=== PATIENT | female | born 1995 | race Caucasian/White ===

== ENCOUNTER 2022-03-12 13:21 | Emergency (ER) | payer SELFPAY ==
[2022-03-12 13:57] VITALS: BP 140/70; BP 144/71; PULSE 78; PULSE 80; RESP 19; TEMP 36.6; O2SAT 98; BMI 29.2
--- NOTE | 2022-03-12 15:07 | ED.PSYCH ---
HPI - Psych General Chief Complaint: Psychiatric Symptoms Stated Complaint: CRISIS Time Seen by Provider: 03/12/22 13:59 Source: patient and EMS Mode of arrival: EMS History of Present Illness HPI Narrative: 26-year-old female with no significant past medical history presenting to the ED via EMS found by PD disheveled, crying, altered/under the influence. Patient states she was at [employer] and started crying, reports increasing depression due to the loss of her mother 1 year ago. Admits to injecting Fentanyl, denies other illicit drugs or EtOH. Denies falls/trauma, abdominal pain, nausea/vomiting, SI/HI MD complaint: feels depressed Onset (ago): day(s) Related Data Allergies Allergy/AdvReac Type Severity Reaction Status Date / Time Unable to Assess Allergy Unverified 03/12/22 14:40 Review of Systems Review of Systems: Constitutional: No Fever, No Chills, No Fatigue, No Malaise ENT/Mouth: No Ear Pain, No Nasal Congestion, No sore throat, No Swallowing Difficulty Eyes: No Eye Pain, No Swelling, No Vision Changes Cardiovascular: No Chest Pain, No SOB, No Edema, No Palpitations Respiratory: No Cough, No Dyspnea Gastrointestinal: No Nausea, No Vomiting, No Diarrhea, No Constipation, No Abdominal pain Genitourinary: No Dysuria, No Urinary Frequency, No Hematuria, No Urinary Flow Changes Musculoskeletal: No joint pain, No Myalgias, No Joint Swelling Skin: No Skin Lesions, No rash Neuro: No Loss of Consciousness, No Dizziness, No Headache Psych: + Anxiety/Panic, + Depression, No SI/HI/AH/VH, No Social Issues Yes all other systems are reviewed and are negative Constitutional: Constitutional: Reports as per HPI [facility] Past Medical History Attestation statement: The following information was validated with the patient. Social History Social History Advance Directives: No Advance Directives Information Provided: No Physical Exam Vital Signs: Vital Signs: Last Vital Signs Temp 98 F 03/12/22 13:57 Pulse 78 03/12/22 13:57 Resp 19 03/12/22 13:57 BP 144/71 H 03/12/22 13:57 Pulse Ox 98 03/12/22 13:57 O2 Del Method 10/17/22 13:57 BMI result Body Mass Index 29.2 Const: Other: Disheveled, appears under the influence, ambulating around POD irratically General: no acute distress and anxious Orientation/consciousness: patient oriented x3 Limitations: no limitations HEENT: Head: Yes normal to inspection and Yes atraumatic Ears: hearing grossly normal bilaterally General nose exam: Normal external nose present Face and sinus: Yes normal facial exam Eyes: General: appearance normal, both eyes and all related structures EOM: EOMs intact bilaterally Neck: Neck: Yes normal visual inspection and Yes no meningeal signs Resp: Effort & Inspection: normal respiratory effort and no respiratory distress Auscultation: clear to auscultation bilaterally Cardio: Rate: regular rate Heart sounds: S1 normal heart sound present and S2 normal heart sound present Skin: Rashes: no rashes Wounds: no wounds Neuro: General: patient oriented x3, tone normal, moves all extremities and no meningeal signs Cranial nerves: Yes CN's II-XII intact bilaterally Gait exam (Neuro): Normal gait present Extrem: General: Yes normal to inspection Psych: Appearance: disheveled Affect: Sad affect present, Hostile affect present and Irritable affect present Attitude: Guarded attititude/behavior present Thought content: suicidality, no homicidality and Depressive thoughts present Course Course Course Narrative: -UA contaminated. Tox screen positive for opiates, fentanyl, cocaine -[id number]--patient requesting to be discharged, continues to deny SI/HI, just feels depressed. Is more at baseline, ambulating with steady gait, alert, offered resources however patient refused MDM - Psych MDM Narrative Medical decision making narrative: 26-year-old female with no significant past medical history presenting to the ED via EMS found by PD disheveled, crying, altered/under the influence. On exam vital signs stable, nontoxic appearing, under the influence, ambulating irratically, no evidence of trauma. Concern for PCP use vs other illicit substances and depression. Patient denies SI/HI. Plan: Tox screen, CARE team consult Differential Diagnosis Differential diagnosis: Likely depression and substance abuse Medical Records Attestation: I reviewed the patient's medical records. Lab Data Attestation: I reviewed the patient's lab results. Labs: Lab Results 03/12/22 03/12/22 03/12/22 Range/Units 14:40 14:41 14:41 Urine Color Yellow Urine Appearance Turbid Urine pH 8.5 (5.0-9.0) Ur Specific [place] 1.015 (1.005-1.025) Urine Protein Negative (Neg-Trace) mg/dL Urine Glucose (UA) Negative (Negative) mg/dL Urine Ketones Negative (Negative) mg/dL Urine Blood Negative (Negative) Urine Nitrite Negative (Negative) Ur Leukocyte Esterase Moderate (2+) H (Negative) Urine RBC 3-5 H (0-2) /HPF Urine WBC 11-20 H (0-5) /HPF Ur Squamous Epith Cells 6-10 (0-2) /HPF Urine Bacteria 1+ (None Seen) Hyaline Casts 3-5 (0-2) /LPF Urine Test NEGATIVE (NEGATIVE) Urine Opiates Screen POSITIVE H (Not Detect) Urine Fentanyl Screen POSITIVE H (Not Detect) Ur Barbiturates Screen Not Detected (Not Detect) Ur Phencyclidine Scrn Not Detected (Not Detect) Ur Amphetamines Screen Not Detected (Not Detect) U Benzodiazepines Scrn Not Detected (Not Detect) Urine Cocaine Screen POSITIVE H (Not Detect) U Marijuana (THC) Screen Not Detected (Not Detect) Discharge Plan Discharge Clinical Impression: Substance abuse, Depression Patient Disposition: Home, Self-Care Instructions: Depression (ED), Polysubstance Abuse (ED) Additional Instructions: Avoid drugs this can kill you. Avoid alcohol. If you have thoughts of hurting herself or others return to the emergency department follow-up with her doctors. also follow[facility] with [facility] Referrals: [facility] [Provider Group] [facility] [Outside]
[2022-03-12 15:37] LABS: Appearance Urine Turbid; Color Urine Yellow; Glucose Urine UA Negative (Negative); Leukocyte Esterase Urine Moderate (2+) (Negative); Nitrite Urine Negative (Negative); PH 8.5 (5.0-9.0); Specific Gravity - Urine 1.015 (1.005-1.025); UMIC TRIGGER UACC YES; Urine Blood Negative (Negative); Urine Ketones Negative (Negative); Urine Protein Negative (Neg-Trace)
[2022-03-12 15:40] LABS: UPreg QC Valid YES; Urine Pregnancy NEGATIVE (NEGATIVE)
[2022-03-12 15:49] LABS: Amphetamine Screen Urine Not Detected (Not Detect); Barbiturates, Urine Not Detected (Not Detect); Benzodiazepines Screen Urine Not Detected (Not Detect); Cannabinoid Screen Urine Not Detected (Not Detect); Cocaine Screen Urine POSITIVE (Not Detect); Fentanyl, urine POSITIVE (Not Detect); Opiate Screen Urine POSITIVE (Not Detect); Phencyclidine Screen Urine Not Detected (Not Detect)
[2022-03-12 16:03] LABS: Bacteria Urine 1+ (None Seen); UACC Culture Trigger YES
--- NOTE | 2022-03-12 16:37 | PC.NURSE ---
pt has been pacing with steady gait in the pod, she states that being in this unit is causing her stress and anxiety and wants to leave, she states that she can't sit still because she's withdrawing, does not want detox, denies si/hi,
--- NOTE | 2022-03-12 17:06 | PC.NURSE ---
i assisted the pt with calling the [place] as she thinks they may know where her phone and book bag are. pt was not able to get any information about where they may be.all belongings that she came with were returned to her
== END 2022-03-12 17:15 | disposition home or self-care (01) ==
PROVIDERS: Physician Assistant; Emergency Provider Emergency Medicine
DX: F32.A Depression, unspecified (principal); F19.10 Other psychoactive substance abuse, uncomplicated
CPT/HCPCS: 80307; 81001; 81025; 87086; 99282; 99283